=== PATIENT | male | born 1950 | race Caucasian/White ===

== ENCOUNTER 2021-04-11 11:08 | Emergency (ER) | payer MEDICARE, SELFPAY ==
--- NOTE | 2021-04-11 | ECG_ITS ---
APPROVED REPORT Exam: Resting ECG HR:117 bpm ECG Measurements Heart Rate 117 AXES QRSd 114 QRS -71 QT 276 T 48 QTc 385 Conclusion Accelerated Junctional rhythm Left axis deviation Right bundle branch block Inferior infarct, possibly acute ACUTE FL Consider right ventricular involvement in acute inferior infarct Abnormal ECG Electronically signed by : Tripp Bennett MD 04/13/2021 13:27:16
[2021-04-11 11:22] VITALS: BMI 92.3
--- NOTE | 2021-04-11 11:22 | XR_ITS ---
PROCEDURE: XR CHEST PORTABLE CLINICAL HISTORY: cardiac arrast COMPARISON: No exams were available for comparison FINDINGS: 11:11 a.m.. Study is very limited technically. An endotracheal tube is present in slightly high position. The tip is 6.4 cm above the rhianna. There is moderate patient rotation with cardiomegaly. Overlying the fibular device on the left. Prominent mediastinum. IMPRESSION: Limited study showing cardiomegaly and prominent mediastinum with an endotracheal tube present slightly high at the T3 level. Dictated by: Doug Chand MD 04/11/2021 13:38 Doug Chand MD in [place] 04/11/2021 13:38
--- NOTE | 2021-04-11 11:25 | PC.NURSE ---
1120 - Spoke to patients at this time regarding expression of wishes. She states pt did not have any specific wishes. Updated her on current status of patient. Explained to that patient was very critical at this time and that she needs to come to in at this time. extremely upset and crying at this time, advised she was en route to the hospital.
--- NOTE | 2021-04-11 11:32 | ED_ITS ---
ED Disposition Clinical Impression: Disposition: Condition on Discharge: Referrals: Provider,Referral, [Primary Care Provider] - - Critical Care Critical Care Time: No Attestation: On 04/11/21, the high probability of a clinically significant, sudden or life threatening deterioration of the following system(s) required my full and direct attention, intervention and personal management. The time I documented below is in addition to time spent performing reported procedures but includes the following listed in this critical care notation. 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, iván chest rise with bvm, PEA/asystole, brief vfib and pulse regained ekg junctional, lad, non spec st changes, pulse lost PEA/ACLS mult rounds of epi, no retuen of stable vitals General Adult HPI - General Chief complaint: Cardiac Arrest/CPR Stated complaint: cardiac arrest Time Seen by Provider: 04/11/21 11:08 Mode of Arrival: EMS Source of Information: EMS Limitations: unconscious - History of Present Illness MD complaint: from home by ems reports sudden onset collapse and dyspnea, PEA rhythm Onset (ago): minute(s) Severity: severe - Related Data Allergies Allergy/AdvReac Type Severity Reaction Status Date / Time No Known Allergies Allergy Unverified 04/03/17 14:22 [facility] History - Hepatitis A Screen Attestation statement:: This patient has been screened for Hepatitis A risk factors. ROS Obtained: Yes All systems reviewed & no additional complaints Physical Exam - General General appearance: obtunded - Head Head exam: atraumatic - Eye Eye exam: Present: other (mid dilated fixed) - ENT ENT exam: Present: other (et tube in palce) - Neck Neck exam: Present: normal inspection - Chest Chest inspection: Present: normal inspection - Respiratory Respiratory exam: Present: other (chest rise with bvm) - Cardiovascular Cardiovascular exam: Present: other (PEA/asystole) - Abdominal Exam Abdominal exam: Present: soft. Absent: distention - Extremities Exam Extremities exam: Present: normal inspection - Neurological Exam Neurological exam: Present: other (gcs 3t) - Skin Skin exam: Present: mottled
--- NOTE | 2021-04-11 11:56 | PC.NURSE ---
Pt's family at bedside.
--- NOTE | 2021-04-11 12:21 | PC.NURSE ---
pt to ed per ems. per ems, crew was called out for a fall at home. upon loading pt, pt went into sinus emilia then into asystole at approx 1047. ems reports giving 3mg epi, 1 bicarb and established an IO in the left leg in route to [facility]. ems arrived to [facility] at 1102. Active compressions on arrival that continued until 1104. pulse check performed at 1104. pt in vfib. shock initiated at 200v at 1105. 1 epi given at this time. Asystole after shock, compressions continued. Pulse check again at 1107, pt remained in asystole. Compressions continued. 1 epi given at this time. 1109- pulse check, pt in vfib at this time. shock initialed at 200v. 1110- 109 HR 1111- 115 HR 1112- 116 HR 113- ekg obtained 116 HR @ 1118 pt went into vfib, no pulse felt, compressions initiated. shocked at 200v, 1 epi given at this time. 1120- pulse check, pt in asystole. compressions continued. 1121- 1 epi given. 1122- pulse check, pt in asystole. compressions continued. 1124- pulse check- pt in asystole, 1 epi given. no responde to the epi- efforts terminated and pronounced at 1125. [facility] contacted at 1148. Spoke with brian zavala who released pt. case # [id number]. 1251- contacted [employer] [facility] home of choice.
--- NOTE | 2021-04-11 13:12 | PC.NURSE ---
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
[2021-04-11 13:56] VITALS: BP 0/0; PULSE 0; RESP 0; TEMP -17.7; TEMP 0; O2SAT 0
== END 2021-04-11 13:59 | disposition expired ==
PROVIDERS: Emergency Provider Emergency Medicine
DX: I46.9 Cardiac arrest, cause unspecified (principal)
CPT/HCPCS: 71045; 93005; 96374; 96375; 99283